=== PATIENT | male | born 1950 | race Caucasian/White ===

== ENCOUNTER → 2016-10-16 | Day surgery (SDC) | payer MEDICARE, OTHER ==
[~2016-10-16] VITALS: Ht 170.2 cm; Wt 99.8 kg
[~2016-10-16] MED LIST: 0.9% Sodium Chloride 1,000 ML IV ONE; CHOL200025 PO; HYDR-3825 PO; IMI100 PO; KLO5T PO; METH20TA33 PO; OMEP40CA36 PO; Sodium Chloride LOK Flush 10 mL Syringe IV PRN; ZALE10CA PO; ZOLP12.52 PO; fentaNYL-PF 50 mCg/mL 2 mL Inj IVPUSH PRN
[2016-10-16 14:11] VITALS: BP 157/92; PULSE 68; RESP 16; O2SAT 94
[2016-10-16 14:35] VITALS: BP 144/85; PULSE 70; RESP 16; O2SAT 92
[2016-10-16 14:45] VITALS: BP 135/83; PULSE 83; RESP 16; O2SAT 95
[2016-10-16 14:50] VITALS: BP 143/89; PULSE 75; RESP 16; O2SAT 95
--- NOTE | 2016-10-16 14:53 | ENDO ---
[address] [address] ENDOSCOPY PROCEDURE PATIENT: EDWARD HERNANDEZ : 1950 MR#: [id number] ADMIT: 10/16/2016 JOB ID: [id number] DATE OF SERVICE: 10/16/2016 PREOPERATIVE DIAGNOSIS(ES): Gastroesophageal reflux disease. POSTOPERATIVE DIAGNOSIS: Widely open, patent Schatzki ring, status post biopsy. ANESTHESIA: Fentanyl 150 mcg, Versed 7 mg IV administered. COMPLICATIONS: None. BLOOD LOSS: Minimal. DESCRIPTION OF PROCEDURE: After risks and benefits were explained to the patient, informed consent was obtained. After anesthesia administered, upper endoscope was inserted into the mouth and intubated into the esophagus, stomach, second portion of duodenum. Mucosa carefully examined. After the procedure was done, the scope was withdrawn and the procedure terminated. FINDINGS: Upon inspection of the esophagus, esophagus appeared normal except there is a widely open, patent Schatzki ring in distal esophagus. Z-line located at 40 cm from incisors. Upon entry in the stomach, the stomach was also normal without masses, ulcers, lesions. Retroflexion of the duodenal bulb, first and second portion were normal. Biopsies taken of antrum, body and distal esophagus. IMPRESSION: Widely open, patent Schatzki. RECOMMENDATIONS: Await pathology results. Continue anti-reflux medication. Follow up in GI clinic as needed.
--- NOTE | 2016-10-21 11:22 | PATH ---
SURGICAL PATHOLOGY Attending Physician:Ollie Berry MD CASE STATUS: Signed Out PATIENT NAME: EDWARD HERNANDEZ PID: [id number] : 1950 DATE COLLECTED:10/16/2016 00:00 SPECIMEN: 1: Stomach, Antrum, Biopsy 2: Gastric, Biopsy 3: Esophagus, Biopsy CLINICAL HISTORY: 1). GASTRIC ANTRUM BIOPSY, RULE OUT H.PYLORI 2). GASTRIC BODY BIOPSY 3). DISTAL ESOPHAGUS BIOPSY FINAL DIAGNOSIS: 1. Gastric Antrum Biopsy: Fragments of antral mucosa negative for significant inflammation. Negative for evidence of Helicobacter on H&E stain. Negative for intestinal metaplasia. Negative for dysplasia and malignancy. 2. Gastric Body Biopsy: Fragments of fundic-type mucosa negative for significant inflammation. Negative for evidence of Helicobacter on H&E stain. Negative for intestinal metaplasia. Negative for dysplasia and malignancy. 3. Distal Esophagus Biopsy: Fragments of squamous mucosa and minute amount of gastric surface epithelium consistent with cardia-type mucosa, negative for specialized metaplasia of [place]'s type esophagus. Chronic inflammation with reactive epithelial changes suggestive of chronic reflux. Negative for dysplasia and malignancy. Negative for squamous intraepithelial eosinophils. ICD10: R10.9 GROSS DESCRIPTION: The specimen is received in three formalin filled containers labeled with the patient's name. 1). The specimen is sublabeled "gastric antrum" is of 2 portions of tissue which aggregate to 0.4 x 0.3 x 0.2 CM. The specimen is entirely submitted in cassette 1A. 2). The specimen is sublabeled "gastric body" and consists of 2 portions of tissue which aggregate to 0.5 x 0.3 x 0.2 CM. The specimen is entirely submitted in cassette 2A. 3). The specimen is sublabeled "distal esophagus" and consists of 2 portions of tissue which aggregate to 0.3 x 0.3 x 0.2 CM. The specimen is entirely submitted in cassette 3A. 10/17/2016 [facility] ICD-9 CODES: CPT CODES: 1: 72370 2: 63760 3: 49457 Electronically Signed Out Kerwin George MD [facility] [place] [address] Technical component performed at [facility], [facility] [address], [address]
== END | disposition home or self-care (01) ==
LOC: END 01:01
PROVIDERS: ATTEND Internal Medicine Gastroenterology
DX: K22.2 Esophageal obstruction (principal); K21.9 Gastro-esophageal reflux disease without esophagitis; G47.33 Obstructive sleep apnea (adult) (pediatric); F32.9 Major depressive disorder, single episode, unspecified; G47.00 Insomnia, unspecified; E55.9 Vitamin D deficiency, unspecified; G44.309 Post-traumatic headache, unspecified, not intractable; Z87.820 Personal history of traumatic brain injury; Z85.820 Personal history of malignant melanoma of skin
CPT/HCPCS: 43239; G0500; J2250; J3010; J7030